=== PATIENT | female | born 1935 | race Caucasian/White ===

== ENCOUNTER 2018-02-24 14:26 | Observation (INO) | payer OTHER, MEDICARE ==
[~2018-02-24] VITALS: Ht 152.4 cm; Wt 61.5 kg
[~2018-02-24 14:26] MED LIST: AMLODIPINE BESYL5 MG PO; COLCHICINE0.6 M1 PO; FIBERCON625 MG PO; FOSAMAX70 MG PO; FUROSEMIDE20 MG PO; K-DUR20 MEQ PO; LOTEMAX5 ML LEFT EYE; MEDROL DOSEPAK4 MG PO; MEDROL4 MG PO; MULTIVITAMIN1 EAC1 PO; NATURAL CALCIU500 M1 PO; NATURAL CALCIU500 MG PO; OMEGA 3-6-9 11200 MG PO; OMEGA 3-6-91200 MG PO; PRAVASTATIN SOD20 MG PO; PREMARIN0.3 MG PO; PRINIVIL20 MG PO; ULORIC40 MG PO; VITAMIN C500 M1 PO; VITAMIN D31000 UNI2 PO; VITAMIN D400 UNI1 PO; calcium PO
[2018-02-24 15:37] LABS: HEMOGLOBIN 13.8 G/DL (11.9-15.5); MCH 31.4 PG (29.0-34.0); MCHC 33.7 G/DL (30.0-36.0); MCV 93.2 FL (83-99); PLATELET COUNT 174 K/uL (156-360); RBC DIS.WIDTH-CV 13.4 % (11.8-14.6); RBC DIS.WIDTH-SD 45.9 % (39-53); WHITE BLOOD COUNT 8.7 K/uL (4.1-10.2)
[2018-02-24 15:52] LABS: ALBUMIN 3.9 g/dL (3.2-4.8)
[2018-02-24 15:53] LABS: CHLORIDE 108 mEq/L (99-109); POTASSIUM 3.9 mEq/L (3.7-5.4); SODIUM 142 mEq/L (136-147)
[2018-02-24 15:55] LABS: GLUCOSE 96 mg/dL (70-99); TOTAL PROTEIN 6.6 g/dL (6.4-8.3)
[2018-02-24] MEDS ORDERED: DONEPEZIL HCL5 MG PO (15:56)
[2018-02-24 15:57] LABS: TOTAL BILIRUBIN 0.4 mg/dL (0.0-1.0)
[2018-02-24 15:58] LABS: ALKALINE PHOSPHATASE 87 IU/L (3-129)
[2018-02-24] MEDS ORDERED: VESICARE10 MG PO (15:58)
[2018-02-24 15:59] LABS: CREATININE 1.7 mg/dL (0.6-1.3); GFR ESTIMATE (CALCULATED) 31 mL/min/
[2018-02-24 16:00] LABS: AST (GOT) 21 IU/L (2-34); UREA NITROGEN (BUN) 19 mg/dL (9-23)
[2018-02-24] MEDS ORDERED: LASIX20 MG PO (16:00)
[2018-02-24 16:02] LABS: ALT (GPT) 14 IU/L (3-49); LIPASE 43 U/L (1.0-51.0)
[2018-02-24 16:08] LABS: TROP-I INTERPRETATION NEGATIVE; TROPONIN-I < 0.01 ng/mL (0.0-0.30)
[2018-02-24 17:29] LABS: APPEARANCE CLEAR ((CLEAR)); BILIRUBIN NEGATIVE; BLOOD NEGATIVE; COLOR YELLOW ((YELLOW)); GLUCOSE (STRIP) NEGATIVE; KETONES NEGATIVE; LEUKOCYTES NEGATIVE; NITRITE NEGATIVE; PROTEIN (STRIP) 30; SPECIFIC GRAVITY 1.006 (1.000-1.030); UCUL ADDED? NO; UROBILINOGEN 0.2 MG/DL (0.2-1.0)
[2018-02-24] MEDS ORDERED: PROAIR HFA8.5 GM IH (18:36)
[2018-02-24] MEDS ORDERED: ALLOPURINOL100 MG PO (18:37)
[2018-02-24] MEDS ORDERED: LISINOPRIL20 MG PO (18:37)
[2018-02-24 19:53] LABS: HDL CHOLESTEROL 41 MG/DL (Desirable>=50); LDL CHOLESTEROL 75 mg/dL (Desirable<100); NON-HDL CHOLESTEROL 95 mg/dL (Desirable<160); TOTAL CHOLESTEROL 136 mg/dL (Desirable<200); TRIGLYCERIDES 102 MG/DL (Normal: <150)
[2018-02-24 20:44] VITALS: BP 159/104
[2018-02-24 22:02] LABS: TROP-I INTERPRETATION NEGATIVE; TROPONIN-I < 0.01 ng/mL (0.0-0.30)
[2018-02-25 00:16] VITALS: BP 142/70
[2018-02-25 03:19] LABS: HEMATOCRIT 36.1 % (36.0-46.0); MCH 31.3 PG (29.0-34.0); MCHC 33.2 G/DL (30.0-36.0); MCV 94.3 FL (83-99); PLATELET COUNT 137 K/uL (156-360); RBC DIS.WIDTH-CV 13.7 % (11.8-14.6); RBC DIS.WIDTH-SD 47.3 % (39-53); RED BLOOD COUNT 3.83 M/uL (3.80-5.20); WHITE BLOOD COUNT 7.6 K/uL (4.1-10.2)
[2018-02-25 03:31] LABS: CHLORIDE 114 mEq/L (99-109); POTASSIUM 3.7 mEq/L (3.7-5.4); SODIUM 145 mEq/L (136-147)
[2018-02-25 03:33] LABS: GLUCOSE 104 mg/dL (70-99)
[2018-02-25 03:37] LABS: CREATININE 1.3 mg/dL (0.6-1.3); GFR ESTIMATE (CALCULATED) 42 mL/min/
[2018-02-25 03:38] LABS: TROP-I INTERPRETATION NEGATIVE; TROPONIN-I < 0.01 ng/mL (0.0-0.30); UREA NITROGEN (BUN) 15 mg/dL (9-23)
[2018-02-25 03:57] VITALS: BP 158/74
[2018-02-25 07:00] VITALS: BP 143/65
[2018-02-25] MEDS ORDERED: AMLODIPINE BESY10 MG PO (10:39)
[2018-02-25] MEDS ORDERED: ASPIR-LOW81 MG PO (10:39)
[2018-02-25] MEDS ORDERED: PROTONIX40 MG PO (10:40)
[2018-02-25 12:54] VITALS: BP 168/71
== END 2018-02-25 13:17 | disposition home or self-care (01) ==
LOC: EME 14:26 → EDOF 18:30 → ENRESERV 18:33 → 4SOUTH 20:21 → ENPENDDIS 02-25 11:49 → 4SOUTH 02-25 13:17
PROVIDERS: Emergency Medicine; Internal Medicine
DX: K52.9 Noninfective gastroenteritis and colitis, unspecified (principal); R07.9 Chest pain, unspecified; N17.9 Acute kidney failure, unspecified; K21.9 Gastro-esophageal reflux disease without esophagitis; I71.4 Abdominal aortic aneurysm, without rupture; E86.0 Dehydration; I10 Essential (primary) hypertension; E78.5 Hyperlipidemia, unspecified; M10.9 Gout, unspecified; Z86.011 Personal history of benign neoplasm of the brain; J45.909 Unspecified asthma, uncomplicated; Z90.49 Acquired absence of other specified parts of digestive tract; Z90.710 Acquired absence of both cervix and uterus; Z82.49 Family history of ischemic heart disease and other diseases of the circulatory system; Z82.5 Family history of asthma and other chronic lower respiratory diseases; R55 Syncope and collapse; Z88.0 Allergy status to penicillin; Z88.1 Allergy status to other antibiotic agents; Z88.2 Allergy status to sulfonamides; Z91.040 Latex allergy status
CPT/HCPCS: 74176; 80048; 80053; 80061; 81003; 83690; 84484; 85027; 93005; 94799; 99281; 99285; C9113; G0378; J1644; J2405; J7030